=== PATIENT | female | born 1985 | race Caucasian/White ===

== ENCOUNTER 2022-07-04 14:46 | Outpatient (CLI) | payer OTHER, SELFPAY ==
--- NOTE | 2022-07-04 15:00 | CT_ITS ---
Patient: KAILEY ELIZABETH Facility:?[facility] Patient ID:?[id number] Site Patient ID:?[id number]. Site :?1985 Study:?CT-ST Neck Angio STROKE PROTOCOL W/95CC ISOVUE 370-07/04/2022 3:36:54 PM Ordering Physician:?Main Verdugo Final Report: INDICATION: Acute stroke, headache. TECHNIQUE: CTA neck with contrast bolus tracking and 3D MIP reconstruction. FINDINGS: There is no significant carotid or vertebral artery stenosis or dissection. The soft tissues of the neck are within normal limits. The cervical spine is in normal alignment. IMPRESSION: Unremarkable neck CTA. Please note that all CT scans at this facility use dose modulation, iterative reconstruction, and/or weight-based dosing when appropriate to reduce radiation dose to as low as reasonably achievable. Dictated by Chava Ortiz MD @ 07/05/2022 8:35:42 AM Signed by:?Chava Ortiz MD @07/05/2022 8:35:42 AM (Electronic Signature)
--- NOTE | 2022-07-04 15:00 | CT_ITS ---
Patient: KAILEY ELIZABETH Facility:?[facility] Patient ID:?[id number] Site Patient ID:?[id number]. Site :?1985 Study:?CT-Head Angio STROKE PROTOCOL W/95CC [id number] ALL I-07/04/2022 3:37:59 PM Ordering Physician:?Main Verdugo Final Report: INDICATION: Acute stroke, headache. TECHNIQUE: CTA head with contrast bolus tracking and 3D MIP reconstruction. FINDINGS: There is normal opacification of the intracranial vasculature. There is no large vessel occlusion. No aneurysm is identified. IMPRESSION: Unremarkable head CTA. Please note that all CT scans at this facility use dose modulation, iterative reconstruction, and/or weight-based dosing when appropriate to reduce radiation dose to as low as reasonably achievable. Dictated by Chava Ortiz MD @ 07/05/2022 8:35:18 AM Signed by:?Chava Ortiz MD @07/05/2022 8:35:18 AM (Electronic Signature)
== END 2022-07-04 14:47 | disposition home or self-care (01) ==
PROVIDERS: PCP Family Medicine; Visit Provider Family Medicine
DX: G45.9 Transient cerebral ischemic attack, unspecified (principal); G51.0 Bell's palsy; R51.9 Headache, unspecified
CPT/HCPCS: 70496; 70498; Q9967

== ENCOUNTER 2024-05-23 14:38 | Outpatient (CLI) | payer OTHER, SELFPAY | END 2024-05-23 14:39 | disposition home or self-care (01) | LOC: NFLDREF 05-25 09:40 | PROVIDERS: PCP Family Medicine; Referring Provider Family Medicine; Visit Provider Nurse Practitioner Family | DX: M79.10 Myalgia, unspecified site (principal) | CPT/HCPCS: 87086 ==

== ENCOUNTER 2024-05-27 11:25 | Outpatient (CLI) | payer OTHER, SELFPAY | END 2024-05-27 11:26 | disposition home or self-care (01) | PROVIDERS: PCP Family Medicine; Visit Provider Family Medicine | DX: G51.32 Clonic hemifacial spasm, left (principal); Z11.59 Encounter for screening for other viral diseases | CPT/HCPCS: 80053; 80061; 82306; 82607; 83735; 84443; 86803 ==

== ENCOUNTER 2024-06-09 08:25 | Outpatient (CLI) | payer OTHER, SELFPAY | END 2024-06-09 08:26 | disposition home or self-care (01) | LOC: NFLDREF 06-11 17:10 | PROVIDERS: PCP Family Medicine; Referring Provider Family Medicine; Visit Provider Family Medicine | DX: K21.9 Gastro-esophageal reflux disease without esophagitis (principal) | CPT/HCPCS: 82728 ==

== ENCOUNTER 2024-07-18 13:21 | Outpatient (CLI) | payer OTHER, SELFPAY ==
[2024-07-21 15:48] LABS: HPV Source Endocervical; HPV, High Risk by TMA Not Detected
== END 2024-07-18 13:22 | disposition home or self-care (01) ==
PROVIDERS: PCP Family Medicine; Visit Provider Family Medicine
DX: Z01.419 Encounter for gynecological examination (general) (routine) without abnormal findings (principal); N92.0 Excessive and frequent menstruation with regular cycle; Z12.4 Encounter for screening for malignant neoplasm of cervix
CPT/HCPCS: 87624; 87625; 88141; 88142

== ENCOUNTER 2025-06-25 17:43 | Outpatient (CLI) | payer OTHER, SELFPAY | END 2025-06-25 17:44 | disposition home or self-care (01) | LOC: NFLDREF 07-09 00:52 | PROVIDERS: PCP Family Medicine; Referring Provider Family Medicine; Visit Provider Family Medicine | DX: R30.0 Dysuria (principal); N39.0 Urinary tract infection, site not specified; R10.9 Unspecified abdominal pain | CPT/HCPCS: 87086 ==

== ENCOUNTER 2025-07-09 13:25 | Outpatient (CLI) | payer OTHER, SELFPAY | END 2025-07-09 13:26 | disposition home or self-care (01) | LOC: NFLDREF 07-24 02:10 | PROVIDERS: PCP Family Medicine; Referring Provider Family Medicine; Visit Provider Physician Assistant Medical | DX: N30.00 Acute cystitis without hematuria (principal) | CPT/HCPCS: 87086 ==

== ENCOUNTER 2025-08-06 10:31 | Outpatient (CLI) | payer OTHER, SELFPAY ==
--- NOTE | 2025-08-06 10:45 | CRLHL7_ITS ---
For Patients: As a result of the Century Cures Act, medical imaging exams and procedure reports are released immediately into your electronic medical record. You may view this report before your referring provider. If you have questions, please contact your health care provider. INDICATION: aub, menorrhagia COMPARISON: 07/05/2015 TECHNIQUE: 2D naylor-scale and color Doppler images were acquired of the pelvis using a transabdominal and transvaginal approach. Transvaginal imaging performed to better visualize the endometrial stripe and ovaries. FINDINGS: Sonographic images demonstrate a normal size and smooth outer contour of the uterus. Uterus measures 10.5 cm in length by 5.1 cm in AP diameter by 5.7 cm in transverse dimension. Posterior intramural fibroid measures 12 x 12 x 14 millimeters. Multiple cervical nabothian cysts are present, measuring up to 1.1 cm. The endometrial lining measures 9.4 mm in composite thickness. The right ovary measures 3.9 x 1.6 x 1.9 cm in size and the left ovary measures 3.9 x 2.0 x 3.3 cm. The ovaries demonstrate normal arterial and venous blood flow on color Doppler analysis. There are no suspicious fluid collections within the cul-de-sac. Simple left ovarian cyst measures 1.5 x 1.7 x 1.5 cm. Other smaller cysts/follicles noted on the left. IMPRESSION: Endometrial thickness 9.4 millimeters. No endometrial fluid. 14 millimeter intramural fibroid. Multiple left ovarian follicles/cysts measuring up to 17 millimeters. Dictated by Librado David MD @ 08/06/2025 12:09:01 PM (Electronically Signed)
== END 2025-08-06 10:32 | disposition home or self-care (01) ==
LOC: US 10:31
PROVIDERS: PCP Family Medicine; Visit Provider Obstetrics & Gynecology
DX: N93.9 Abnormal uterine and vaginal bleeding, unspecified (principal); R93.89 Abnormal findings on diagnostic imaging of other specified body structures; D25.1 Intramural leiomyoma of uterus
CPT/HCPCS: 76830; 76856

== ENCOUNTER 2025-08-12 11:39 | Outpatient (CLI) | payer OTHER, SELFPAY | END 2025-08-12 11:40 | disposition home or self-care (01) | PROVIDERS: PCP Family Medicine; Visit Provider Obstetrics & Gynecology | DX: N92.0 Excessive and frequent menstruation with regular cycle (principal) | CPT/HCPCS: 82728; 84443 ==